=== PATIENT | female | born 1945 | race Caucasian/White ===

== ENCOUNTER 2020-05-20 11:35 | Inpatient (IN) | payer OTHER ==
[~2020-05-20] VITALS: Ht 157.5 cm; Wt 57.8 kg
[~2020-05-20 11:35] MED LIST: ACETAMINOPHEN650 M5 PO; ADULT LOW DOSE81 MG PO; ALDACTONE100 MG PO; ASPIRIN81 MG PO; CARVEDILOL6.25 MG PO; COREG12.5 MG PO; FUROSEMIDE 20 M20 MG PO; IBUPROFEN 200200 M1 PO; K-DUR 20 MEQ T20 MEQ PO; LASIX 40 MG TAB40 M2 PO; LISINOPRIL40 MG PO; MIDAMOR 5MG TABL5 M1; MULTIVITAMINS1 EAC7 PO; NIFEDICAL XL60 MG PO; NIFEDIPINE ER90 M1 PO; PROMETHAZINE-C120 ML PO; SIMVASTATIN40 MG PO; TRAMADOL 50 MG50 MG; UNICOMPLEX M TA1 TA1 PO; VITAMIN D1000 UNI1 PO; ZOCOR20 MG PO; ZPAK PO
[2020-05-20 11:47] VITALS: BP 136/59
[2020-05-20 12:11] LABS: URINE BILIRUBIN NEGATIVE (Negative); URINE BLOOD TRACE (Negative); URINE CLARITY CLEAR; URINE COLOR YELLOW; URINE GLUCOSE-RANDOM* NEGATIVE (Negative); URINE KETONES NEGATIVE (Negative); URINE LEUKOCYTES-REFLEX NEGATIVE (Negative); URINE NITRITE-REFLEX NEGATIVE (Negative); URINE PROTEIN (DIPSTICK) NEGATIVE (Negative); URINE SPECIFIC GRAVITY 1.015 (1.005-1.035); URINE UROBILINOGEN 0.2 E.U./dl (0.2-1.0)
[2020-05-20 12:22] LABS: ABSOLUTE NEUTROPHILS 4.1 thou/uL (1.4-8.2); BASOPHILS 0.8 % (0.0-2.0); EOSINOPHILS 1.1 % (0.0-3.0); HEMATOCRIT 30.8 % (37.0-47.0); HEMOGLOBIN 10.7 gm/dL (12.0-15.0); LYMPHOCYTES 17.2 % (24.0-44.0); MCHC 34.9 g/dL (28.0-37.0); MCV 91.6 fL (80.0-100.0); MONOCYTES 11.7 % (1.0-8.0); PLATELET COUNT 418 thou/uL (150-400); POLYS 69.2 % (36.0-66.0); RBC 3.36 mil/uL (4.20-5.00); RDW 12.3 % (10.5-14.5)
[2020-05-20 12:34] LABS: CALCIUM 9.2 mg/dL (8.5-10.1); CREATININE 0.8 mg/dL (0.6-1.0); POTASSIUM 4.5 mmol/L (3.5-5.1)
[2020-05-20 12:41] LABS: ALBUMIN 3.4 g/dL (3.4-5.0); TOTAL BILIRUBIN 0.3 mg/dL (0.2-1.0); TOTAL PROTEIN 6.3 g/dL (6.4-8.2)
[2020-05-20] MEDS ORDERED: BUMEX2 MG PO (13:12)
[2020-05-20] MEDS ORDERED: ALENDRONATE SOD70 MG PO (13:14)
[2020-05-20] MEDS ORDERED: LOSARTAN POTAS100 MG PO (13:15)
[2020-05-20] MEDS ORDERED: MEXILETINE 150150 MG PO (13:15)
[2020-05-20] MEDS ORDERED: EZALLOR SPRINKL10 MG PO (13:16)
[2020-05-20] MEDS ORDERED: KLOR-CON 1010 MEQ PO (13:16)
[2020-05-20 17:26] VITALS: BP 137/55
[2020-05-20 20:41] VITALS: BP 127/56
[2020-05-20 21:00] VITALS: BP 123/52
[2020-05-20 21:30] VITALS: BP 138/49
[2020-05-21 04:50] VITALS: BP 138/49
--- NOTE | 2020-05-21 04:59 | NUR ---
PT ARRIVED ON THE UNIT AROUND 2104, PT IS AWAKE, ALERT AND ORIENTEDX4, MAKES NEEDS KNOWN, SR ON THE MONITOR, C/O PAIN TO THE RIGHT KNEE, PAIN TYL GIVEN PRN, NO FURTHER COMPLAINS, ADMISSION ASSESSMENT CHARTED, VSS, STABLE OVERNIGHT NO ISSUES VOICED OR NOTED, WILL CONTINUE TO MONITOR
[2020-05-21 05:00] VITALS: BP 136/52
[2020-05-21 08:30] VITALS: BP 136/66
[2020-05-21 10:00] LABS: ABSOLUTE NEUTROPHILS 3.6 thou/uL (1.4-8.2); BASOPHILS 0.9 % (0.0-2.0); EOSINOPHILS 1.2 % (0.0-3.0); HEMATOCRIT 28.9 % (37.0-47.0); HEMOGLOBIN 10.2 gm/dL (12.0-15.0); LYMPHOCYTES 18.7 % (24.0-44.0); MCH 32.5 pg (26.0-34.0); MCHC 35.2 g/dL (28.0-37.0); MCV 92.3 fL (80.0-100.0); MONOCYTES 6.9 % (1.0-8.0); POLYS 72.3 % (36.0-66.0); RBC 3.13 mil/uL (4.20-5.00); RDW 12.4 % (10.5-14.5); WBC 4.9 thou/uL (4.0-11.0)
[2020-05-21 10:11] LABS: PLATELET COUNT 343 thou/uL (150-400)
[2020-05-21 10:15] LABS: CALCIUM 8.8 mg/dL (8.5-10.1); CREATININE 0.6 mg/dL (0.6-1.0); POTASSIUM 4.6 mmol/L (3.5-5.1)
[2020-05-21 12:04] VITALS: BP 117/60
[2020-05-21 17:20] VITALS: BP 141/62
--- NOTE | 2020-05-21 17:48 | NUR ---
ASSUMED CARE PT SHIFT CHANGE. ASSESSMENTS CHARTED.MEDS GIVEN PER DEC. PT ALERT AND ORIENTED. VSS. DENIES PAIN. O2 SATS WNL ON ROOM AIR. PT UP SBA TOLERATING WELL. PT UP WALKING UNIT X2 TODAY. R KNEE INCISION HEALING. NA LAB 125 THIS SHIFT. PHYSICIAN NOTIFIED. PT ON REG DIET TOLERATING WELL. PT CURRENTLY UP IN CHAIR EATING DINNER. DENIES NEEDS. WILL CONT TO MONITOR. WILL PASS ON REPORT TO LOY CAPELLAN.
[2020-05-21 19:17] VITALS: BP 135/66
[2020-05-22 03:53] VITALS: BP 151/67
--- NOTE | 2020-05-22 05:31 | NUR ---
SLEPT PART OF SHIFT. EATING SNACK WITH AM MED. UP TO BATHROOM WITH WALKER AND STANDBY ASSIST X1 NEEDED. WORKING ON GOALS AND PLAN OF CARE FOR NOC. PROGRESSING SLOWLY TOWARDS DISCHARGE GOALS. CONTINUE TO ASSES CLOSELY. DENIES COMPLAINTS OF PAIN THIS SHIFT.
[2020-05-22 05:38] LABS: CALCIUM 8.8 mg/dL (8.5-10.1); CREATININE 0.5 mg/dL (0.6-1.0); POTASSIUM 4.7 mmol/L (3.5-5.1)
[2020-05-22 09:00] VITALS: BP 135/56
[2020-05-22 12:00] VITALS: BP 121/55
--- NOTE | 2020-05-22 15:28 | NUR ---
PT ADMITTED RELATED TO HYPONATREMIA, WEAKNESS. CM REVIEWED CHART AND SPOKE WITH CARE TEAM. CM CALLED AND SPOKE WITH PT THIS DAY. PT APPEARED TO BE A&O X4. CM ROLE INTRODUCED. PT INDICATED SHE LIVES ALONE IN A [place] WITH 2 STEPS TO ENTER AND NO STEPS INSIDE. PT INDICATED SHE HAD USED A CANE TO ASSIST WITH MOBILITY UP UNTIL SHE HAD A KNEE REPLACEMENT AT 4 WEEKS AGO WHERE THEY ISSUED HER A FWW. PT INDICATED SHE HAD BEEN RECEIVING HH SERVICES THROUGH [facility]. PT'S PCP IS DR. BEN LEE. PT INICATED SHE ANTICIPATES RETURNING HOME AND RESUMING SERVICES WITH [facility] ONCE MEDICALLY STABLE. CM CALLED [facility] AND NOTIFIED THEM OF PT'S ADMISSION. CLINICAL UPDATE SENT. CM TO FOLLOW INDICATED WITH DC PLANNING.
[2020-05-22 15:40] VITALS: BP 107/47
[2020-05-22 20:15] VITALS: BP 128/54
--- NOTE | 2020-05-22 21:08 | NUR ---
PATIENT WAS UP IN CHAIR MOST OF THE DAY. PATIENT SAW ALL THERAPIES AND SHOWERED WITH OT. PATIENT STATED SHE WAS FEELING MUCH BETTER. AM LABS NOTED. RENAL DOCUTOR CONSULTED. IVF CONTINUE TO RUN. HEART RATE AND RHYTHM STABLE. ADEQUATE OXYGENTION ON ROOM AIR. DISCUSSES PLAN OF CARE. PATIENT IS PROGRESSING TOWARDS GOALS.
--- NOTE | 2020-05-23 04:38 | NUR ---
ASSESSED AT START OF SHIFT. PT A&OX4. TYLENOL GIVEN FOR PAIN. SLIGHT REDNESS NOTED AROUND IV SITE AND IV REPLACED IN RT HAND WITH NS INFUSING. PT UP WITH SBA TO THE BATHROOM. SCD'S ON BLE. FALL PREC IN PLACE AND WILL CONT TO MONITOR
[2020-05-23 05:49] VITALS: BP 141/51
[2020-05-23 08:30] VITALS: BP 144/54
[2020-05-23 08:37] LABS: CALCIUM 8.5 mg/dL (8.5-10.1); CREATININE 0.4 mg/dL (0.6-1.0); POTASSIUM 4.6 mmol/L (3.5-5.1)
[2020-05-23 12:23] VITALS: BP 143/66
[2020-05-23 16:16] VITALS: BP 132/71
--- NOTE | 2020-05-23 19:42 | NUR ---
ASSUMED CARE OF PT AT SHIFT CHANGE. ASSESSMENTS CHARTED. MEDS GIVEN PER DEC. PT A&OX4, NO C/O PAIN OR DISTRESS. WILL CONTINUE TO MONITOR AND FOLLOW POC.
[2020-05-23 20:16] VITALS: BP 127/49
[2020-05-24 05:38] VITALS: BP 136/54
[2020-05-24 06:06] LABS: HEMATOCRIT 27.2 % (37.0-47.0); HEMOGLOBIN 9.4 gm/dL (12.0-15.0); MCH 32.1 pg (26.0-34.0); MCHC 34.6 g/dL (28.0-37.0); MCV 92.6 fL (80.0-100.0); RBC 2.94 mil/uL (4.20-5.00); RDW 12.4 % (10.5-14.5)
[2020-05-24 06:35] LABS: CALCIUM 8.5 mg/dL (8.5-10.1); CREATININE 0.6 mg/dL (0.6-1.0); POTASSIUM 4.4 mmol/L (3.5-5.1)
[2020-05-24 07:15] VITALS: BP 140/62
--- NOTE | 2020-05-24 07:40 | NUR ---
SLEPT MOST OF SHIFT. UP TO BATHROOM WITH WALKER AND STEADY GAIT. FRUSTRATED WITH LACK OF PROGRESS OF NA+ INCREASING. WORKING ON GOALS AND PLAN OF CARE FOR NOC. WITH MILD PAIN AND ACHE TO RIGHT KNEE POST OP. CONTINUE TO ASSES CLOSELY.
[2020-05-24 12:00] VITALS: BP 125/53
--- NOTE | 2020-05-24 16:51 | NUR ---
ASSUMED CARE OF PT AT SHIFT CHANGE. ASSESSMENTS CHARTED. MEDS GIVEN PER DEC. PT A&OX4, NO C/O PAIN, PT UP AD ISHA. PLAN TO DC TOMORROW IF SODIUM IS AT LEAST 130. WILL CONTINUE TO MONITOR AND FOLLOW POC.
[2020-05-24 17:00] VITALS: BP 129/48
[2020-05-24 19:30] VITALS: BP 138/66
[2020-05-25 04:20] VITALS: BP 145/68
--- NOTE | 2020-05-25 06:11 | NUR ---
PATIENT IS UP AD ISHA AND AMBULATES IN HALLWAY TOLERATED. PATIENT COMPLAINS OF INTERMITTENT BILATERAL KNEE PAIN THAT RESOLVES WITH APAP ORDERED PRN. NA+ WAS 127 ON 05/24 AND DISCHARGE PLAN STATES NA+ MUST BE UP 3 POINTS TO GO HOME. SLOWLY PROGRESSING TOWARD DISCHARGE GOALS.
[2020-05-25 06:47] LABS: ALBUMIN 2.8 g/dL (3.4-5.0); CALCIUM 8.7 mg/dL (8.5-10.1); CREATININE 0.6 mg/dL (0.6-1.0); POTASSIUM 4.3 mmol/L (3.5-5.1)
[2020-05-25 08:30] VITALS: BP 144/56
[2020-05-25] MEDS ORDERED: SODIUM CHLORIDE1 GM PO (09:21)
[2020-05-25 10:29] VITALS: BP 145/68
[2020-05-25 10:34] VITALS: BP 145/68
--- NOTE | 2020-05-25 11:18 | NUR ---
ASSUMED CARE AT SHIFT CHANGE, ALERT AND ORIENTED X4, VSS AND AFEBRILE. DISCHARGE AND MEDICATIION INSTRUCTIONS. PATIENT DISCHARGED HOME.
[2020-05-25 12:49] VITALS: BP 145/68
--- NOTE | 2020-05-25 14:37 | NUR ---
PT DISCHARGING TODAY TO HOME WITH [facility] FAXED DC ORDERS/SUMMARY RECEIVED CONFIRMATION AND LEFT MSG WITH SYEDA IN INTAKE.
== END 2020-05-25 11:24 | disposition home health service (06) | DRG 640 ==
LOC: ER 11:35 → 2N 13:51 → EROBS 13:51 → 2N 21:00
PROVIDERS: Hospitalist; Internal Medicine Nephrology; Physician Assistant; ADMIT Hospitalist; ATTEND Hospitalist
DX: E87.1 Hypo-osmolality and hyponatremia (principal); E43 Unspecified severe protein-calorie malnutrition; I50.22 Chronic systolic (congestive) heart failure; E78.5 Hyperlipidemia, unspecified; E86.0 Dehydration; T50.2X5A Adverse effect of carbonic-anhydrase inhibitors, benzothiadiazides and other diuretics, initial encounter; K52.9 Noninfective gastroenteritis and colitis, unspecified; Z60.2 Problems related to living alone; K59.00 Constipation, unspecified; E53.8 Deficiency of other specified B group vitamins; I11.0 Hypertensive heart disease with heart failure; R63.4 Abnormal weight loss; Z68.23 Body mass index [BMI] 23.0-23.9, adult; Z79.82 Long term (current) use of aspirin; Z88.8 Allergy status to other drugs, medicaments and biological substances; Z87.891 Personal history of nicotine dependence; Z90.710 Acquired absence of both cervix and uterus; Z90.10 Acquired absence of unspecified breast and nipple; Y92.89 Other specified places as the place of occurrence of the external cause; Z47.89 Encounter for other orthopedic aftercare; Z79.899 Other long term (current) drug therapy
CPT/HCPCS: 10081